=== PATIENT | male | born 1970 | race African-American/Black ===

== ENCOUNTER 2025-08-12 14:50 | Emergency (ER) | payer MEDICAID ==
[~2025-08-12] VITALS: Ht 170.2 cm; Wt 119.0 kg
[2025-08-12 14:55] VITALS: O2SAT 98
[2025-08-12] MEDS ORDERED: IBUP-1525 MT (19:34)
[2025-08-12] MEDS ORDERED: TOPUD MT (19:34)
[2025-08-12 19:45] VITALS: BP 143/85; PULSE 82; RESP 18; TEMP 36.9; O2SAT 99
== END 2025-08-12 19:56 | disposition home or self-care (01) ==
LOC: ER 15:44
DX: M19.011 Primary osteoarthritis, right shoulder (principal); Z98.890 Other specified postprocedural states
CPT/HCPCS: 73030; 99283